=== PATIENT | female | born 1955 | race Caucasian/White ===

== ENCOUNTER 2017-09-25 07:47 | Emergency (ER) | payer SELFPAY ==
[~2017-09-25] VITALS: Ht 167.6 cm; Wt 94.0 kg
[2017-09-25] MEDS ORDERED: METF500T4 PO (07:58)
[2017-09-25] MEDS ORDERED: ATEN-42 PO (07:58)
[2017-09-25] MEDS ORDERED: ASPI-986 PO (07:58)
[2017-09-25] MEDS ORDERED: KETOROLAC 30MG/ML VIAL IV ONE (08:45)
[2017-09-25] MEDS ORDERED: KETOROLAC 30MG/ML VIAL IM ONE (09:15)
[2017-09-25] MEDS ORDERED: KETOROLAC 15MG/ML VIAL IV ONE (10:45)
[2017-09-25] MEDS ORDERED: FENTANYL CITRATE/PF 50MCG/ML 2ML VIAL IV ONE (10:45)
[2017-09-25 13:25] VITALS: BP 147/49
== END 2017-09-25 14:06 | disposition short-term general hospital (02) ==
LOC: ER 07:47
DX: S82.201A Unspecified fracture of shaft of right tibia, initial encounter for closed fracture (principal); S82.401A Unspecified fracture of shaft of right fibula, initial encounter for closed fracture; E11.9 Type 2 diabetes mellitus without complications; I10 Essential (primary) hypertension; Z79.82 Long term (current) use of aspirin; W19.XXXA Unspecified fall, initial encounter; Y93.89 Activity, other specified; Y92.89 Other specified places as the place of occurrence of the external cause; Y99.8 Other external cause status
CPT/HCPCS: 27840; 29515; 73590; 73610; 73630; 96374; 96375; 99284; J1885; J3010; Z7610